=== PATIENT | female | born 1970 ===

== ENCOUNTER 2018-02-12 14:21 | Inpatient (IN) | payer OTHER ==
--- NOTE | 2018-02-12 15:24 | ED PDOC ---
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 Denies weakness, MELGAR, CP, SOB. NIHSS Stroke Scale - Date/Time Evaluation Performed Date Performed: 02/12/18 Time Performed: 15:10 When Was NIHSS Performed: Code Stroke - How Severe is the Stroke Level of Consciousness: 0=Alert LOC to Questions: 0=Both comments correct LOC to commands: 0=Obeys both correctly Best Gaze: 0=Normal Visual: 0=No visual loss Facial: 0=Normal Motor Arm - Left: 0=No drift Motor Arm - Right: 0=No drift Motor Leg - Left: 0=No drift Motor Leg - Right: 0=No drift Limb Ataxia: 0=Absent Sensory: 0=Normal Best Language: 0=No aphasia Dysarthia: 0=Normal articulation Extinction & Inattention (Neglect): 0=Normal, no object Score: 0 rTPA Inclusion/Exclusion - Refusal of Treatment Patient Refused Treatment: No - Inclusion Criteria for Altepase Patient is 18 years or Older: Yes The Clinical Diagnosis of Ischemic Stroke That is Causing a Potentially Disabling Neurological Deficit: No Time of Onset is Well Established to be Less Than 270 Minute Before Treatment Would Begin: No Risk/Benefit Discussed With Patient/Family Member Present: No - Warning to TPA With Conditions Condition: Rapid Improvement Past Medical History Reviewed: Nursing Documentation, Vital Signs Vital Signs: Last Vital Signs Temp 98.3 F 02/12/18 14:43 Pulse 78 02/12/18 14:43 Resp 16 02/12/18 14:43 BP 196/93 H 02/12/18 14:43 Pulse Ox 98 02/12/18 14:43 - Medical History PMH: No Chronic Diseases - Family History Family History: States: Unknown Family Hx - Social History Current smoker - smoking cessation education provided: No Alcohol: None - Home Medications Home Medications: Ambulatory Orders Medication Instructions Recorded No Known Home Med 02/12/18 - Allergies Allergies/Adverse Reactions: Allergies Allergy/AdvReac Type Severity Reaction Status Date / Time No Known Allergies Allergy Verified 02/12/18 14:43 Review of Systems Constitutional: Negative for: Fever, Chills Eyes: Positive for: Vision Change Cardiovascular: Negative for: Chest Pain, Palpitations Respiratory: Negative for: Cough, Shortness of Breath Gastrointestinal: Negative for: Nausea, Vomiting, Abdominal Pain, Diarrhea Genitourinary Female: Negative for: Dysuria, Hematuria Musculoskeletal: Negative for: Back Pain Skin: Negative for: Rash, Lesions Neurological: Positive for: Numbness. Negative for: Weakness, Incoordination, Change in Speech, Confusion, Seizures, Altered Mental Status, Headache, Dizziness Physical Exam - Reviewed Nursing Documentation Reviewed: Yes Vital Signs Reviewed: Yes - Physical Exam Appears: Positive for: Well, No Acute Distress Head Exam: Positive for: ATRAUMATIC, NORMAL INSPECTION Skin: Positive for: Normal Color, Warm, Dry Eye Exam: Positive for: Normal appearance, EOMI, PERRL Neck: Positive for: Normal, Painless ROM, Supple Cardiovascular/Chest: Positive for: Regular Rate, Rhythm Respiratory: Positive for: Normal Breath Sounds Gastrointestinal/Abdominal: Positive for: Normal Exam Back: Positive for: Normal Inspection Neurologic/Psych: Positive for: Alert, [place] II-XII, Oriented, Cerebellar Tests (WNL). Negative for: Motor/Sensory Deficits, Aphasia, Facial Droop - Laboratory Results Result Diagrams: 02/12/18 15:30 02/12/18 15:30 - ECG Interpretation Of ECG: NSR @ 66, nonspecific ST and T wave abnormality. O2 Sat by Pulse Oximetry: 98 Pulse Ox Interpretation: Normal - Core Measure Core Measure Indicators: Code Stroke (1509) - Critical Care Total Time (In Min): 45 Medical Decision Making Medical Decision Makin yo female with L sided numbness and visual changes resolved. - code stroke - labs - EKG - CXR - CT head Accession No. : [id number] Patient Name / ID : OSCAR REEVES / [id number] Exam Date : 02/12/2018 15:25:03 ( Approved ) Study Comment : Sex / Age : F / 47Y Creator : Lui Bob MD Dictator : Lui Bob MD Museum Curator : Epitaxial Reactor Technician : Lui Bob MD Approver2 : Report Date : 02/12/2018 16:03:46 My Comment : Date of service: 02/12/2018 HISTORY: Code Stroke COMPARISON: No prior. FINDINGS: LUNGS: No active pulmonary disease. PLEURA: No significant pleural effusion identified, no pneumothorax apparent. CARDIOVASCULAR: Aortic atherosclerotic calcifications. Cardiomediastinal silhouette enlarged. OSSEOUS STRUCTURES: No significant abnormalities. VISUALIZED UPPER ABDOMEN: Normal. OTHER FINDINGS: None. IMPRESSION: No active disease. Accession No. : [id number] Patient Name / ID : OSCAR REEVES / [id number] Exam Date : 02/12/2018 15:15:38 ( Approved ) Study Comment : Sex / Age : F / 47Y Creator : Lui Bob MD Dictator : Lui Bob MD Museum Curator : Epitaxial Reactor Technician : Lui Bob MD Approver2 : Report Date : 02/12/2018 15:26:33 My Comment : Date of service: 02/12/2018 PROCEDURE: CT HEAD WITHOUT CONTRAST. HISTORY: code stroke COMPARISON: None. TECHNIQUE: Axial computed tomography images were obtained through the head/brain without intravenous contrast. Radiation dose: Total exam DLP = 751.94 mGy-cm. This CT exam was performed using one or more of the following dose reduction techniques: Automated exposure control, adjustment of the mA and/or kV according to patient size, and/or use of iterative reconstruction technique. FINDINGS: HEMORRHAGE: No intracranial hemorrhage. BRAIN: No mass effect or edema. No atrophy or chronic microvascular ischemic changes. VENTRICLES: Unremarkable. No hydrocephalus. CALVARIUM: Unremarkable. PARANASAL SINUSES: Unremarkable as visualized. No significant inflammatory changes. MASTOID AIR CELLS: Unremarkable as visualized. No inflammatory changes. OTHER FINDINGS: None. IMPRESSION: No acute intracranial pathology. 15:[address] Levy, recommends ASA and MRI without contrast. CTA HEAD/NECK: Pending. Disposition - Clinical Impression Clinical Impression: TIA (transient ischemic attack) - Patient ED Disposition Is Patient to be Admitted: Yes - Disposition Disposition Time: 17:19 Condition: STABLE - Pt Status Changed To: Hospital Disposition Of: Inpatient - Admit Certification Admit to Inpatient:: After my assessment, the patient will require hospita lization for at least two midnights. This is because of the severity of symptoms shown, intensity of services needed, and/or the medical risk in this patient being treated as an outpatient. - POA Present On Arrival: None
--- NOTE | 2018-02-12 15:30 | CT ---
Date of service: 02/12/2018 PROCEDURE: CT HEAD WITHOUT CONTRAST. HISTORY: code stroke COMPARISON: None. TECHNIQUE: Axial computed tomography images were obtained through the head/brain without intravenous contrast. Radiation dose: Total exam DLP = 751.94 mGy-cm. This CT exam was performed using one or more of the following dose reduction techniques: Automated exposure control, adjustment of the mA and/or kV according to patient size, and/or use of iterative reconstruction technique. FINDINGS: HEMORRHAGE: No intracranial hemorrhage. BRAIN: No mass effect or edema. No atrophy or chronic microvascular ischemic changes. VENTRICLES: Unremarkable. No hydrocephalus. CALVARIUM: Unremarkable. PARANASAL SINUSES: Unremarkable as visualized. No significant inflammatory changes. MASTOID AIR CELLS: Unremarkable as visualized. No inflammatory changes. OTHER FINDINGS: None. IMPRESSION: No acute intracranial pathology. Findings conveyed to Dr. Roblero by Dr. Stringer at 3:25 p.m. on 02/12/2018.
[2018-02-12 15:46] LABS: INR 0.9; PROTHROMBIN TIME 10.4 Seconds (9.8-13.1)
[2018-02-12 15:49] LABS: PARTIAL THROMBOPLASTIN TIME 29.8 Seconds (25.6-37.1)
[2018-02-12 15:51] LABS: BASO # 0.1 K/uL (0.0-0.2); EOS # 0.1 K/uL (0.0-0.7); EOS % 1.8 % (0.0-4.0); HEMOGLOBIN 13.6 g/dL (12.0-16.0); LYMPH # 3.4 K/uL (1.0-4.3); LYMPH % 44.2 % (20.0-40.0); MEAN CELL VOLUME 86.1 fl (81.0-99.0); MEAN CORPUSCULAR HGB CONC 33.7 g/dL (33.0-37.0); MEAN PLATELET VOLUME 8.4 fl (7.2-11.7); MONO # 0.7 K/uL (0.0-0.8); MONO % 9.7 % (0.0-10.0); NEUT # 3.3 K/uL (1.8-7.0); NEUT % 43.3 % (50.0-75.0); NRBC % 0.1 % (0.0-0.0); RBC 4.71 Mil/uL (3.80-5.20); RED CELL DISTRIBUTION WIDTH 13.5 % (11.5-14.5); WHITE BLOOD COUNT 7.7 K/uL (4.8-10.8)
[2018-02-12 16:06] LABS: ALBUMIN 3.9 g/dL (3.5-5.0); ALT/SGPT 15 U/L (9-52); AST/SGOT 29 U/L (14-36); BLOOD UREA NITROGEN 11 mg/dl (7-17); GFR NON-AFRICAN AMERICAN > 60; HDL CHOLESTEROL 46 MG/DL (30-70)
--- NOTE | 2018-02-12 16:07 | RAD ---
Date of service: 02/12/2018 HISTORY: Code Stroke COMPARISON: No prior. FINDINGS: LUNGS: No active pulmonary disease. PLEURA: No significant pleural effusion identified, no pneumothorax apparent. CARDIOVASCULAR: Aortic atherosclerotic calcifications. Cardiomediastinal silhouette enlarged. OSSEOUS STRUCTURES: No significant abnormalities. VISUALIZED UPPER ABDOMEN: Normal. OTHER FINDINGS: None. IMPRESSION: No active disease.
[2018-02-12] MEDS: Sodium Chloride 0.9% 1,000 ML IV SCH (16:13)
[2018-02-12 16:17] LABS: LDL CHOLESTEROL 92 mg/dL (0-129)
[2018-02-12] MEDS ORDERED: Potassium Chloride 20 mEq ER Tab PO STA (16:24)
--- NOTE | 2018-02-12 16:40 | CARD ---
APPROVED REPORT Date of service: 02/12/2018 EKG Measurement Heart [id number] <Conclusion> Sinus rhythm with marked sinus arrhythmia Nonspecific ST and T wave abnormality Abnormal ECG
[2018-02-12] MEDS ORDERED: Potassium Chloride 20 mEq ER Tab PO ONE (16:47)
[2018-02-12] MEDS ORDERED: Sodium Chloride 0.9% 50 ML IV ONE (17:09)
[2018-02-12] MEDS ORDERED: Iodixanol 320 MG/ML 100 ML BOTTLE IV ONE (17:09)
--- NOTE | 2018-02-12 17:36 | CP.PCM.CON ---
History of Present Illness - History of Present Illness History of Present Illness: neurology consult dictated. IN brief, patient had left arm numbness and tingling with loss of vision in left lower quadrant, now resolved. observed that patient had numbness and visual deficit on admission. Now the patient has a normal neurological examination with NIHS of 0. on exam: NOrmal neurological exam CT head: normal. Labs: normal. a/p: patient with TIA who may have had an ischemic process or lacunar secondary to HTN. Plan: 1. admit for stroke workup. 2. MRI brain without nereida 3. aspirin 4. ECHO. 5. CTA head and neck Thank you DR. cordova Past Patient History - Past Social History Smoking Status: Never Smoked - CARDIAC Hx Heart Attack: Yes (13 years ago) - PULMONARY Hx Respiratory Disorders: No - PSYCHIATRIC Hx Substance Use: No - SURGICAL HISTORY Hx Section: Yes (3) Meds Allergies/Adverse Reactions: Allergies Allergy/AdvReac Type Severity Reaction Status Date / Time No Known Allergies Allergy Verified 02/12/18 14:43 - Medications Medications: Current Medications Sodium Chloride (Sodium Chloride 0.9%) 1,000 mls @ 100 mls/hr IV .Q10H SOSA Last Admin: 02/12/18 16:13 Dose: 100 mls/hr Results - Vital Signs Recent Vital Signs: Last Vital Signs Temp 98.3 F 02/12/18 14:43 Pulse 79 02/12/18 16:50 Resp 16 02/12/18 16:50 BP 166/93 H 02/12/18 16:50 Pulse Ox 98 02/12/18 16:50 - Labs Result Diagrams: 02/12/18 15:30 02/12/18 15:30 Labs: Laboratory Results - last 24 hr 02/12/18 02/12/18 02/12/18 15:30 15:30 15:30 WBC 7.7 RBC 4.71 Hgb 13.6 Hct 40.5 MCV 86.1 MCH 29.0 MCHC 33.7 RDW 13.5 Plt Count 293 MPV 8.4 Neut % (Auto) 43.3 L Lymph % (Auto) 44.2 H [place] % (Auto) 9.7 Eos % (Auto) 1.8 Baso % (Auto) 1.0 Neut # (Auto) 3.3 Lymph # (Auto) 3.4 [place] # (Auto) 0.7 Eos # (Auto) 0.1 Baso # (Auto) 0.1 PT 10.4 INR 0.9 APTT 29.8 Sodium 139 Potassium 3.5 L Chloride 105 Carbon Dioxide 24 Anion Gap 14 BUN 11 Creatinine 0.7 Est GFR ( Amer) > 60 Est GFR (Non-Af Amer) > 60 Random Glucose 129 H Calcium 9.0 Total Bilirubin 0.2 AST 29 ALT 15 Alkaline Phosphatase 85 Troponin I < 0.0120 Total Protein 7.8 Albumin 3.9 Globulin 4.0 H Albumin/Globulin Ratio 1.0 Triglycerides 439 H Cholesterol 175 LDL Cholesterol Direct 92 HDL Cholesterol 46 Blood Type Antibody Screen BBK History Checked 02/12/18 15:30 WBC RBC Hgb Hct MCV MCH MCHC RDW Plt Count MPV Neut % (Auto) Lymph % (Auto) [place] % (Auto) Eos % (Auto) Baso % (Auto) Neut # (Auto) Lymph # (Auto) [place] # (Auto) Eos # (Auto) Baso # (Auto) PT INR APTT Sodium Potassium Chloride Carbon Dioxide Anion Gap BUN Creatinine Est GFR ( Amer) Est GFR (Non-Af Amer) Random Glucose Calcium Total Bilirubin AST ALT Alkaline Phosphatase Troponin I Total Protein Albumin Globulin Albumin/Globulin Ratio Triglycerides Cholesterol LDL Cholesterol Direct HDL Cholesterol Blood Type A POSITIVE Antibody Screen Negative BBK History Checked No verified bt
--- NOTE | 2018-02-12 18:14 | CP.PCM.HP ---
<Shelby Downing - Last Filed: 02/12/18 19:36> History of Present Illness - History of Present Illness History of Present Illness: CC: weakness and numbness in L side HPI: 47 YO Female with no sig PMHx presents to [facility] ED for L sided numbness and weakness. Pt states that her symptoms started about two months ago, describes as intermittent L sided headaches,numbness of the L side of her face and weakness of her upper and lower ext. These symptoms lasted an hr but resolved spontaneously. Last night around 7PM, her symptoms started and did not resolve like they usually do, but persisted thought the night and this morning which brought the patient to the ER. In addition to the severe, pounding L sided headache, pt had blurry vision in the affected side along with numbness of the face (L), and weakness and numbness L side of her body. Her symptoms started resolving prior to arrive to the ER. Partner Jeremi present by bedside. Of note, pt is from [facility], has not seen a MD in years. PMD: none PMHx: hx of palpitations in the past SurgHx: x 3 SHx: lives with family, denies smoking and illicit drug use, social ETOH FHx: denies Allergies: NKDA Meds: none at home Present on Admission - Present on Admission Any Indicators Present on Admission: No Review of Systems - Constitutional Constitutional: Headache. absent: Fever - EENT Eyes: Blurred Vision, Change in Vision - Cardiovascular Cardiovascular: absent: Chest Pain, Dyspnea, Palpitations - Respiratory Respiratory: absent: Dyspnea - Gastrointestinal Gastrointestinal: absent: Abdominal Pain, Diarrhea, Nausea, Vomiting - Neurological Neurological: Numbness, Headaches, Weakness Past Patient History - Past Social History Smoking Status: Never Smoked Alcohol: Social Drugs: Denies Home Situation {Lives}: With Family - CARDIAC Other/Comment: hx of palpatations in the past - PULMONARY Hx Respiratory Disorders: No - PSYCHIATRIC Hx Substance Use: No - SURGICAL HISTORY Hx Section: Yes (3) Meds Allergies/Adverse Reactions: Allergies Allergy/AdvReac Type Severity Reaction Status Date / Time No Known Allergies Allergy Verified 02/12/18 14:43 Physical Exam - Constitutional Appears: No Acute Distress - Head Exam Head Exam: NORMAL INSPECTION - Eye Exam Eye Exam: EOMI, Normal appearance - ENT Exam ENT Exam: Mucous Membranes Moist - Respiratory Exam Respiratory Exam: Clear to Auscultation Bilateral, NORMAL BREATHING PATTERN. absent: Wheezes - Cardiovascular Exam Cardiovascular Exam: REGULAR RHYTHM, +S1, +S2. absent: Diastolic murmur, Systolic Murmur - GI/Abdominal Exam GI & Abdominal Exam: Normal Bowel Sounds, Soft. absent: Tenderness - Extremities Exam Extremities exam: Positive for: normal inspection. Negative for: pedal edema Additional comments: strength 5/5 in the upper and lower ext b/l Sensory intact b/l upper and lower ext and face - Neurological Exam Neurological exam: Alert, CN II-XII Intact, Oriented x3 Results - Vital Signs Recent Vital Signs: Last Vital Signs Temp 98.3 F 02/12/18 14:43 Pulse 79 02/12/18 16:50 Resp 16 02/12/18 16:50 BP 166/93 H 02/12/18 16:50 Pulse Ox 98 02/12/18 18:05 - Labs Result Diagrams: 02/12/18 15:30 02/12/18 15:30 Labs: Laboratory Results - last 24 hr 02/12/18 02/12/18 02/12/18 15:30 15:30 15:30 WBC 7.7 RBC 4.71 Hgb 13.6 Hct 40.5 MCV 86.1 MCH 29.0 MCHC 33.7 RDW 13.5 Plt Count 293 MPV 8.4 Neut % (Auto) 43.3 L Lymph % (Auto) 44.2 H [place] % (Auto) 9.7 Eos % (Auto) 1.8 Baso % (Auto) 1.0 Neut # (Auto) 3.3 Lymph # (Auto) 3.4 [place] # (Auto) 0.7 Eos # (Auto) 0.1 Baso # (Auto) 0.1 PT 10.4 INR 0.9 APTT 29.8 Sodium 139 Potassium 3.5 L Chloride 105 Carbon Dioxide 24 Anion Gap 14 BUN 11 Creatinine 0.7 Est GFR ( Amer) > 60 Est GFR (Non-Af Amer) > 60 Random Glucose 129 H Calcium 9.0 Total Bilirubin 0.2 AST 29 ALT 15 Alkaline Phosphatase 85 Troponin I < 0.0120 Total Protein 7.8 Albumin 3.9 Globulin 4.0 H Albumin/Globulin Ratio 1.0 Triglycerides 439 H Cholesterol 175 LDL Cholesterol Direct 92 HDL Cholesterol 46 Blood Type Antibody Screen BBK History Checked 02/12/18 15:30 WBC RBC Hgb Hct MCV MCH MCHC RDW Plt Count MPV Neut % (Auto) Lymph % (Auto) [place] % (Auto) Eos % (Auto) Baso % (Auto) Neut # (Auto) Lymph # (Auto) [place] # (Auto) Eos # (Auto) Baso # (Auto) PT INR APTT Sodium Potassium Chloride Carbon Dioxide Anion Gap BUN Creatinine Est GFR ( Amer) Est GFR (Non-Af Amer) Random Glucose Calcium Total Bilirubin AST ALT Alkaline Phosphatase Troponin I Total Protein Albumin Globulin Albumin/Globulin Ratio Triglycerides Cholesterol LDL Cholesterol Direct HDL Cholesterol Blood Type A POSITIVE Antibody Screen Negative BBK History Checked No verified bt Assessment & Plan - Assessment and Plan (Free Text) Assessment: Assessment/Plan: 47 YO Female with no sig PMHx is admitted for unilateral sided numbness and weakness likely TIA. NIHSS 0. Neurology on board TIA -likely 2/2 to HTN, complete resolution of initial symptoms. NIHSS 0 -CT head: No acute intracranial pathology -Neurology on board; CTA, MRI, echo and cont asa -passed swallow eval -PT/OT consulted -start ASA 81mg PO daily -follow up labs and imaging HTN -likely chronic and untreated -will allow for permissive HTN for the next 24 hrs -will add meds and adjust as needed HLD -elevated triglycerides and LDL 92 -given TIA, will start Lipitor 20mg po daily Hypokalemia -20meq KCL replaced DVT prophylx -Lovenox SC <Deepti Pinon - Last Filed: 02/12/18 20:19> Results - Vital Signs Recent Vital Signs: Last Vital Signs Temp 98.3 F 02/12/18 14:43 Pulse 78 02/12/18 20:13 Resp 19 02/12/18 20:13 BP 157/76 H 02/12/18 20:13 Pulse Ox 98 02/12/18 20:13 - Labs Result Diagrams: 02/12/18 15:30 02/12/18 15:30 Labs: Laboratory Results - last 24 hr 02/12/18 02/12/18 02/12/18 15:30 15:30 15:30 WBC 7.7 RBC 4.71 Hgb 13.6 Hct 40.5 MCV 86.1 MCH 29.0 MCHC 33.7 RDW 13.5 Plt Count 293 MPV 8.4 Neut % (Auto) 43.3 L Lymph % (Auto) 44.2 H [place] % (Auto) 9.7 Eos % (Auto) 1.8 Baso % (Auto) 1.0 Neut # (Auto) 3.3 Lymph # (Auto) 3.4 [place] # (Auto) 0.7 Eos # (Auto) 0.1 Baso # (Auto) 0.1 PT 10.4 INR 0.9 APTT 29.8 Sodium 139 Potassium 3.5 L Chloride 105 Carbon Dioxide 24 Anion Gap 14 BUN 11 Creatinine 0.7 Est GFR ( Amer) > 60 Est GFR (Non-Af Amer) > 60 Random Glucose 129 H Calcium 9.0 Total Bilirubin 0.2 AST 29 ALT 15 Alkaline Phosphatase 85 Troponin I < 0.0120 Total Protein 7.8 Albumin 3.9 Globulin 4.0 H Albumin/Globulin Ratio 1.0 Triglycerides 439 H Cholesterol 175 LDL Cholesterol Direct 92 HDL Cholesterol 46 Blood Type Antibody Screen BBK History Checked 02/12/18 15:30 WBC RBC Hgb Hct MCV MCH MCHC RDW Plt Count MPV Neut % (Auto) Lymph % (Auto) [place] % (Auto) Eos % (Auto) Baso % (Auto) Neut # (Auto) Lymph # (Auto) [place] # (Auto) Eos # (Auto) Baso # (Auto) PT INR APTT Sodium Potassium Chloride Carbon Dioxide Anion Gap BUN Creatinine Est GFR ( Amer) Est GFR (Non-Af Amer) Random Glucose Calcium Total Bilirubin AST ALT Alkaline Phosphatase Troponin I Total Protein Albumin Globulin Albumin/Globulin Ratio Triglycerides Cholesterol LDL Cholesterol Direct HDL Cholesterol Blood Type A POSITIVE Antibody Screen Negative BBK History Checked No verified bt Attending/Attestation - Attestation I have personally seen and examined this patient.: Yes I have fully participated in the care of the patient.: Yes I have reviewed all pertinent clinical information: Yes Notes (Text): TIA r/o CVA - pt's symptoms resolved - CT of head and CTA of Head and Neck Negative - will check MRI - ECHO - start ASA, Statin, Lovenox fo DVT proph - rpt Lipids in am - check TSH - Neuro consult - will observe pt in the hospital to r/o CVA
[2018-02-13] MEDS: Sodium Chloride 0.9% 1,000 ML IV SCH (02:45)
[2018-02-13 07:53] VITALS: O2SAT 97
[2018-02-13] MEDS ORDERED: Enoxaparin 40 mg Syringe SC SCH (09:00)
--- NOTE | 2018-02-13 09:25 | CP.PCM.DIS ---
<Gabriel Aj - Last Filed: 02/13/18 10:52> Provider - Provider Date of Admission: 02/12/18 17:19 Attending physician: Deepti iPnon MD Primary care physician: NO FAMILY PROVIDER Time Spent in preparation of Discharge (in minutes): 20 Diagnosis - Discharge Diagnosis (1) TIA (transient ischemic attack) Status: Resolved Comment: -resolved. -Rx MRI brain, ECho outpatient (2) Hypertension Status: Chronic Comment: -start losartan 50 mg daily (3) Hyperlipidemia Status: Chronic Comment: - c/w lipitor 20 mg daily Hospital Course - Lab Results Lab Results: Most Recent Lab Values WBC 7.7 K/uL (4.8-10.8) 02/12/18 15:30 RBC 4.71 Mil/uL (3.80-5.20) 02/12/18 15:30 Hgb 13.6 g/dL (12.0-16.0) 02/12/18 15:30 Hct 40.5 % (34.0-47.0) 02/12/18 15:30 MCV 86.1 fl (81.0-99.0) 02/12/18 15:30 MCH 29.0 pg (27.0-31.0) 02/12/18 15:30 MCHC 33.7 g/dL (33.0-37.0) 02/12/18 15:30 RDW 13.5 % (11.5-14.5) 02/12/18 15:30 Plt Count 293 K/uL (130-400) 02/12/18 15:30 MPV 8.4 fl (7.2-11.7) 02/12/18 15:30 Neut % (Auto) 43.3 % (50.0-75.0) L 02/12/18 15:30 Lymph % (Auto) 44.2 % (20.0-40.0) H 02/12/18 15:30 Kimball % (Auto) 9.7 % (0.0-10.0) 02/12/18 15:30 Eos % (Auto) 1.8 % (0.0-4.0) 02/12/18 15:30 Baso % (Auto) 1.0 % (0.0-2.0) 02/12/18 15:30 Neut # (Auto) 3.3 K/uL (1.8-7.0) 02/12/18 15:30 Lymph # (Auto) 3.4 K/uL (1.0-4.3) 02/12/18 15:30 Kimball # (Auto) 0.7 K/uL (0.0-0.8) 02/12/18 15:30 Eos # (Auto) 0.1 K/uL (0.0-0.7) 02/12/18 15:30 Baso # (Auto) 0.1 K/uL (0.0-0.2) 02/12/18 15:30 PT 10.4 Seconds (9.8-13.1) 02/12/18 15:30 INR 0.9 02/12/18 15:30 APTT 29.8 Seconds (25.6-37.1) 02/12/18 15:30 Sodium 139 mmol/l (132-148) 02/12/18 15:30 Potassium 3.5 MMOL/L (3.6-5.0) L 02/12/18 15:30 Chloride 105 mmol/L (98-107) 02/12/18 15:30 Carbon Dioxide 24 mmol/L (22-30) 02/12/18 15:30 Anion Gap 14 (10-20) 02/12/18 15:30 BUN 11 mg/dl (7-17) 02/12/18 15:30 Creatinine 0.7 mg/dl (0.7-1.2) 02/12/18 15:30 Est GFR ( Amer) > 60 02/12/18 15:30 Est GFR (Non-Af Amer) > 60 02/12/18 15:30 Random Glucose 129 mg/dL (65-105) H 02/12/18 15:30 Hemoglobin A1c 5.6 % (4.2-6.5) 02/12/18 15:30 Calcium 9.0 mg/dL (8.4-10.2) 02/12/18 15:30 Total Bilirubin 0.2 mg/dl (0.2-1.3) 02/12/18 15:30 AST 29 U/L (14-36) 02/12/18 15:30 ALT 15 U/L (9-52) 02/12/18 15:30 Alkaline Phosphatase 85 U/L (38-126) 02/12/18 15:30 Troponin I < 0.0120 ng/mL (0.00-0.120) 02/12/18 15:30 Total Protein 7.8 G/DL (6.3-8.2) 02/12/18 15:30 Albumin 3.9 g/dL (3.5-5.0) 02/12/18 15:30 Globulin 4.0 gm/dL (2.2-3.9) H 02/12/18 15:30 Albumin/Globulin Ratio 1.0 (1.0-2.1) 02/12/18 15:30 Triglycerides 439 mg/DL (0-149) H 02/12/18 15:30 Cholesterol 175 mg/dL (0-199) 02/12/18 15:30 LDL Cholesterol Direct 92 mg/dL (0-129) 02/12/18 15:30 HDL Cholesterol 46 MG/DL (30-70) 02/12/18 15:30 Blood Type A POSITIVE 02/12/18 15:30 Antibody Screen Negative 02/12/18 15:30 BBK History Checked No verified bt 02/12/18 15:30 - Hospital Course Hospital Course: 47 yo ,f, no PMhx presented to [facility] ED for L sided numbness and weakness that started 2 momnts ago, with intermittent episodes, associated with left hemicraneal headache, partially alleviated with ibuprofen, but with persistent symptoms since yesterday night associated with left side blurry vision. Code stroked called. CT head normal in ED In Ed symptoms has been resolved when evaluated by neurologist Dr Levy,Patient admitted with TIA who may have had an ischemic process or lacunar secondary to HTN. no overnight events. Asymptomatic this morning, neurologic intact. Pending MRI brain and Echo. Dr Levy agree to discharge patient and f/u MRI and ECho PAtient offered f/u in [facility] and has instruction to apply [facility] Script given for MRI brain and ECho Will f/u MRI brain and Echo in clinic and evaluate patient and give referral for Dr Levy neurologist Patient started in Losartan 50 mg daily for HTN Symptoms may also be related with hemiplegic migraine if lacunar infart is ruled out. Rx fioricet given Discharge Exam - Head Exam Head Exam: NORMAL INSPECTION - Eye Exam Eye Exam: Normal appearance. absent: Nystagmus - Respiratory Exam Respiratory Exam: NORMAL BREATHING PATTERN - Cardiovascular Exam Cardiovascular Exam: REGULAR RHYTHM, +S1, +S2 - GI/Abdominal Exam GI & Abdominal Exam: Normal Bowel Sounds, Soft. absent: Tenderness - Extremities Exam Extremities exam: normal inspection - Neurological Exam Neurological exam: Alert, CN II-XII Intact, Normal Gait, Oriented x3, Reflexes Normal - Psychiatric Exam Psychiatric exam: Normal Affect, Normal Mood Discharge Plan - Discharge Medications Prescriptions: Acetaminophen/Butalbital/Caf [Fioricet] 1 tab PO Q6H PRN 7 Days #10 tab PRN Reason: Headache RX: Aspirin 325 mg PO DAILY 30 Days #30 tab RX: Atorvastatin [Lipitor] 20 mg PO DAILY 30 Days #30 tab RX: Losartan [Cozaar] 50 mg PO DAILY 30 Days #30 tab - Follow Up Plan Condition: STABLE Disposition: HOME/ ROUTINE Additional Instructions: -Aplicar a [facility] para seguimiento con [facility] -[facility]. Le van a llamar de la clinica para darle guero con [facility] - Hacerse MRI y EChocardiograma en esta semana. -Si emperoramiento de los sintomas dolor de alok, desmayo, dolor de pecho regresar a emergencia -Para dolor de alok migrana betsey Ibuprofen 800 con Tylenol hasta 1000 mg. si los sintomas no alivian entonces betsey fioricet 1 tab -comenzar a betsey Losartan 50 mg diario para hypertension y seguimiento con [facility]. Referrals: FAMILY PROVIDER,NO [Primary Care Provider] - Clinical Quality Measures - CQM - Stroke Antithrombotic Prescribed: Yes (Aspirin) <Mary Lovelace - Last Filed: 02/14/18 13:08> Provider - Provider Date of Admission: 02/12/18 17:19 Attending physician: Deepti Pinon MD Primary care physician: NO FAMILY PROVIDER Hospital Course - Lab Results Lab Results: Most Recent Lab Values WBC 6.2 K/uL (4.8-10.8) 02/13/18 09:00 RBC 4.80 Mil/uL (3.80-5.20) 02/13/18 09:00 Hgb 13.8 g/dL (12.0-16.0) 02/13/18 09:00 Hct 41.6 % (34.0-47.0) 02/13/18 09:00 MCV 86.7 fl (81.0-99.0) 02/13/18 09:00 MCH 28.8 pg (27.0-31.0) 02/13/18 09:00 MCHC 33.2 g/dL (33.0-37.0) 02/13/18 09:00 RDW 13.5 % (11.5-14.5) 02/13/18 09:00 Plt Count 270 K/uL (130-400) 02/13/18 09:00 MPV 8.3 fl (7.2-11.7) 02/13/18 09:00 Neut % (Auto) 49.5 % (50.0-75.0) L 02/13/18 09:00 Lymph % (Auto) 41.5 % (20.0-40.0) H 02/13/18 09:00 Kimball % (Auto) 6.0 % (0.0-10.0) 02/13/18 09:00 Eos % (Auto) 2.1 % (0.0-4.0) 02/13/18 09:00 Baso % (Auto) 0.9 % (0.0-2.0) 02/13/18 09:00 Neut # (Auto) 3.1 K/uL (1.8-7.0) 02/13/18 09:00 Lymph # (Auto) 2.6 K/uL (1.0-4.3) 02/13/18 09:00 Kimball # (Auto) 0.4 K/uL (0.0-0.8) 02/13/18 09:00 Eos # (Auto) 0.1 K/uL (0.0-0.7) 02/13/18 09:00 Baso # (Auto) 0.1 K/uL (0.0-0.2) 02/13/18 09:00 PT 10.4 Seconds (9.8-13.1) 02/12/18 15:30 INR 0.9 02/12/18 15:30 APTT 29.8 Seconds (25.6-37.1) 02/12/18 15:30 Sodium 139 mmol/l (132-148) 02/13/18 09:00 Potassium 3.5 MMOL/L (3.6-5.0) L 02/13/18 09:00 Chloride 107 mmol/L (98-107) 02/13/18 09:00 Carbon Dioxide 21 mmol/L (22-30) L 02/13/18 09:00 Anion Gap 15 (10-20) 02/13/18 09:00 BUN 8 mg/dl (7-17) 02/13/18 09:00 Creatinine 0.5 mg/dl (0.7-1.2) L 02/13/18 09:00 Est GFR ( Amer) > 60 02/13/18 09:00 Est GFR (Non-Af Amer) > 60 02/13/18 09:00 POC Glucose (mg/dL) 124 mg/dL (65-110) H 02/12/18 15:07 Random Glucose 156 mg/dL (65-105) H 02/13/18 09:00 Hemoglobin A1c 5.6 % (4.2-6.5) 02/12/18 15:30 Calcium 8.3 mg/dL (8.4-10.2) L 02/13/18 09:00 Total Bilirubin 0.2 mg/dl (0.2-1.3) 02/12/18 15:30 AST 29 U/L (14-36) 02/12/18 15:30 ALT 15 U/L (9-52) 02/12/18 15:30 Alkaline Phosphatase 85 U/L (38-126) 02/12/18 15:30 Troponin I < 0.0120 ng/mL (0.00-0.120) 02/12/18 15:30 Total Protein 7.8 G/DL (6.3-8.2) 02/12/18 15:30 Albumin 3.9 g/dL (3.5-5.0) 02/12/18 15:30 Globulin 4.0 gm/dL (2.2-3.9) H 02/12/18 15:30 Albumin/Globulin Ratio 1.0 (1.0-2.1) 02/12/18 15:30 Triglycerides 244 mg/DL (0-149) H D 02/13/18 09:00 Cholesterol 156 mg/dL (0-199) 02/13/18 09:00 LDL Cholesterol Direct 94 mg/dL (0-129) 02/13/18 09:00 HDL Cholesterol 45 MG/DL (30-70) 02/13/18 09:00 TSH 3rd Generation 1.14 mIU/ML (0.46-4.68) 02/13/18 09:00 Blood Type A POSITIVE 02/12/18 15:30 Antibody Screen Negative 02/12/18 15:30 BBK History Checked No verified bt 02/12/18 15:30 Attending/Attestation - Attestation I have personally seen and examined this patient.: Yes I have fully participated in the care of the patient.: Yes I have reviewed all pertinent clinical information, including history, physical exam and plan: Yes Notes (Text): 02/14/18 13:07 agree with findings and plan as above patient symptoms have resolved and are solely when she has migraine episodes. she may continue outpatient workup; MRI AND ECHO neuro consult appreciated and patient stable for discharge from neuro standpoint patient strongly encouraged to follow up with a primary care physician.
[2018-02-13 09:34] LABS: BASO # 0.1 K/uL (0.0-0.2); BASO % 0.9 % (0.0-2.0); EOS # 0.1 K/uL (0.0-0.7); EOS % 2.1 % (0.0-4.0); HEMOGLOBIN 13.8 g/dL (12.0-16.0); LYMPH # 2.6 K/uL (1.0-4.3); LYMPH % 41.5 % (20.0-40.0); MEAN CELL VOLUME 86.7 fl (81.0-99.0); MEAN CORPUSCULAR HEMOGLOBIN 28.8 pg (27.0-31.0); MEAN CORPUSCULAR HGB CONC 33.2 g/dL (33.0-37.0); MEAN PLATELET VOLUME 8.3 fl (7.2-11.7); MONO # 0.4 K/uL (0.0-0.8); NEUT # 3.1 K/uL (1.8-7.0); NEUT % 49.5 % (50.0-75.0); RBC 4.8 Mil/uL (3.80-5.20); RED CELL DISTRIBUTION WIDTH 13.5 % (11.5-14.5); WHITE BLOOD COUNT 6.2 K/uL (4.8-10.8)
[2018-02-13 09:50] LABS: BLOOD UREA NITROGEN 8 mg/dl (7-17); CALCIUM 8.3 mg/dL (8.4-10.2); GFR NON-AFRICAN AMERICAN > 60; HDL CHOLESTEROL 45 MG/DL (30-70)
[2018-02-13 09:51] VITALS: BP 157/84; RESP 18; TEMP 98
[2018-02-13 09:54] LABS: LDL CHOLESTEROL 94 mg/dL (0-129)
[2018-02-13 10:26] VITALS: PULSE 75
[2018-02-13] MEDS ORDERED: Influenza Vaccine (5 YR UP)/PF 60 MCG/0.5 ML SYR IM ONE (11:00)
--- NOTE | 2018-02-13 13:43 | CT ---
Date of service: 02/12/2018 PROCEDURE: CT Angiography of the Brain and Neck HISTORY: TIA, L sided numbness COMPARISON: None available. TECHNIQUE: CT angiography of the head and neck was performed following intravenous contrast administration. Coronal and sagittal maximum intensity projection reformatted images were generated. Contrast Dose: Visipaque 320, 90 cc Radiation dose: Total exam DLP = 408.69 mGy-cm. This CT exam was performed using one or more of the following dose reduction techniques: Automated exposure control, adjustment of the mA and/or kV according to patient size, and/or use of iterative reconstruction technique. FINDINGS: INTERNAL CEREBRAL ARTERIES: Unremarkable. The skull base, petrous, cavernous and supraclinoid segments are bilaterally widely patent. ANTERIOR CEREBRAL ARTERIES: Unremarkable. A1 and A2 segments are widely patent. Smaller distal branches unremarkable, as visualized. MIDDLE CEREBRAL ARTERIES: Unremarkable. M1 and M2 segments are widely patent. Perisylvian branches grossly symmetric. POSTERIOR CIRCULATION: Basilar Artery: Unremarkable. Distal Vertebral Arteries: Hypoplastic intracranial right vertebral artery with left dominant vertebrobasilar circulation resulting. Posterior Cerebral Arteries: Unremarkable. Posterior Inferior Cerebellar Arteries: Unremarkable. NECK CTA: Common Carotid arteries: Conjoint origin brachiocephalic and left common carotid arteries. The bilateral common carotid appear widely patent from their origins to their bifurcations with no significant stenosis appreciated. No evidence to suggest common carotid artery dissection. Internal Carotid arteries: No significant stenosis is appreciated throughout the cervical internal carotid artery segments bilaterally and there is no evidence of dissection either. External Carotid arteries: Appear unremarkable bilaterally. Vertebral arteries: The bilateral vertebral arteries appear normal in caliber from their origins to their distal cervical segments. No significant stenosis or definite pattern of dissection. ANEURYSM/ VASCULAR MALFORMATIONS: None. OTHER FINDINGS: None. IMPRESSION: No significant stenosis in CT angiography of the brain and neck as discussed above. Hypoplastic distal intracranial right vertebral artery with left dominant vertebrobasilar circulation identified.
== END 2018-02-13 12:01 | disposition home or self-care (01) | DRG 832 ==
LOC: H.ER 14:21 → H.ERHOLD 17:19 → H.TEL 02-13 09:29
PROVIDERS: ADMIT Internal Medicine; ATTEND Internal Medicine
DX: G45.9 Transient cerebral ischemic attack, unspecified (principal); E87.6 Hypokalemia; E78.1 Pure hyperglyceridemia; E78.5 Hyperlipidemia, unspecified; G43.909 Migraine, unspecified, not intractable, without status migrainosus; H54.7 Unspecified visual loss; I10 Essential (primary) hypertension; I25.2 Old myocardial infarction; R29.700 NIHSS score 0; Z79.899 Other long term (current) drug therapy; Z86.73 Personal history of transient ischemic attack (TIA), and cerebral infarction without residual deficits; Z23 Encounter for immunization